=== PATIENT | female | born 1985 | race Two or more races ===

== ENCOUNTER 2017-09-26 17:15 | Emergency (ER) | payer OTHER ==
[2017-09-26 17:55] VITALS: BMI 28.3
--- NOTE | 2017-09-26 17:59 | PDOC ---
History of Present Illness - General Chief Complaint: Pain Stated Complaint: FLU SYMPTOMS Time Seen by Provider: 09/26/17 17:39 *DC/Admit/Observation/Transfer Diagnosis at time of Disposition: Vaginal bleeding in - Referrals Referrals: Mert Torres [Primary Care Provider] - - Patient Instructions - Post Discharge Activity
--- NOTE | 2017-09-26 18:00 | PDOC ---
History of Present Illness - General Chief Complaint: Pain Stated Complaint: FLU SYMPTOMS Time Seen by Provider: 09/26/17 17:39 - History of Present Illness Initial Comments: 09/26/17 17:54 31 yo F 2 aborta, at 26 wga, confirmed by U/S with LMP (03/23/17) BIBA for multiple complaints including decreased movement. Patient reports decreased movement within last 24 hours following influenza illness x 1 week. Has been experiencing NICHOLS, congestion, chest pressure, R sided rib pain, non productive cough, subjective fevers/chills. + leg swelling. Recent diagnosis of Influenza-B 2 days ago on Tamiflu. Denies N/V, hemoptyisis, abdominal pain, diarrhea, constipation, urinary complaints, leg swelling, vaginal bleeding, vaginal discharge. 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 Denies h/o DVT/PE, recent immobilization, trauma or surgery within past 6 weeks, hormonal therapy, or h/o malignancy. Past History - Past Medical History Allergies/Adverse Reactions: Allergies Allergy/AdvReac Type Severity Reaction Status Date / Time No Known Allergies Allergy Unverified 09/26/17 17:51 Home Medications: Ambulatory Orders Oseltamivir Phosphate [Tamiflu -] 75 mg PO BID 09/26/17 COPD: No - Suicide/Smoking/Psychosocial Hx Smoking History: Never smoked Information on smoking cessation initiated: No Hx Alcohol Use: No Drug/Substance Use Hx: No Review of Systems - Review of Systems Comments:: 09/26/17 17:59 GENERAL/CONSTITUTIONAL: + Weakness. No fever or chills. HEAD, EYES, EARS, NOSE AND THROAT: No change in vision. No ear pain or discharge. No sore throat.- CARDIOVASCULAR: + chest pain and shortness of breath RESPIRATORY:+cough. No wheezing, or hemoptysis. GASTROINTESTINAL: No nausea, vomiting, diarrhea or constipation. GENITOURINARY: No dysuria, frequency, or change in urination. MUSCULOSKELETAL: No joint or muscle swelling or pain. No neck or back pain. SKIN: No rash NEUROLOGIC: + headache. No vertigo, loss of consciousness, or change in strength /sensation. ENDOCRINE: No increased thirst. No abnormal weight change HEMATOLOGIC/LYMPHATIC: No anemia, easy bleeding, or history of blood clots. ALLERGIC/IMMUNOLOGIC: No hives or skin allergy. *Physical Exam - Vital Signs Last Vital Signs Temp Pulse Resp BP Pulse Ox 98.1 F 104 H 18 119/72 98 09/26/17 17:42 09/26/17 17:42 09/26/17 17:42 09/26/17 17:42 09/26/17 17:42 - Physical Exam Comments: 09/26/17 18:00 GENERAL: Awake, alert, and fully oriented, in no acute distress HEAD: No signs of trauma, normocephalic, atraumatic EYES: PERRLA, EOMI, sclera anicteric, conjunctiva clear ENT:Hearing grossly normal, nares patent, oropharynx clear without exudates. Moist mucosa NECK: Normal ROM, supple, no lymphadenopathy, JVD, or masses LUNGS: No distress, speaks full sentences, clear to auscultation bilaterally HEART: Regular rate and rhythm, normal S1 and S2, no murmurs, rubs or gallops, peripheral pulses normal and equal bilaterally. ABDOMEN: Uterine fundus palpated above umbilicus. Soft, nontender, normoactive bowel sounds. No guarding, no rebound. No masses. Neg surpapubic ttp. Neg CVA ttp. EXTREMITIES : BL LE non pitting edema. Normal inspection, Normal range of motion. No clubbing or cyanosis. SKIN: Warm, Dry, normal turgor, no rashes or lesions noted ED Treatment Course - LABORATORY CBC & Chemistry Diagram: 09/26/17 18:05 09/26/17 18:05 Medical Decision Making - Medical Decision Making 09/26/17 17:59 31 yo F 2 aborta, at 26 wga, confirmed by U/S with LMP (03/23/17) BIBA for multiple complaints including decreased movement within last 24 hours following influenza illness x 1 week, with recent diagnosis of Influenza-B 2 days ago on Tamiflu.. Has been experiencing NICHOLS, congestion, chest pressure, R sided rib pain, non productive cough, subjective fevers/chills. Denies N/V, hemoptyisis, abdominal pain, diarrhea, constipation, urinary complaints, vaginal bleeding, vaginal discharge. 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 Physical exam noteable for BL LE cirumferntial swelling L>R. Mildly tachycardic HR~104. Although, low risk weils criteria, will consider PE, in setting of tachycardia, chest discomfort, leg swelling and left calf cramping. R/o LE DVT. Most likely need monitoring on OB unit. No evidence of vaginal bleeding or lower abdominal pain to suggest placenta previa, threatened . ED Course: CBC,CMP, T&S, BHCG NS Doppler BL LE EKG, UA 09/26/17 19:12 K+3.1 LFTs, and PLTs non elevated. 09/26/17 19:18 Bedside FHR 138 09/26/17 19:19 40 meQ Pottasium PO 09/26/17 21:58 DVT BL LE: No evidence of BL LE DVT. Pt. stable at bedside with imrpoved symptoms. Will go to L&D unit following discharge. *DC/Admit/Observation/Transfer Diagnosis at time of Disposition: Decreased movement during in second trimester, antepartum Qualifiers: Fetus number: fetus 3 of multiple gestation Qualified Code(s): O36.8123 - Decreased movements, second trimester, fetus 3 - Discharge Dispostion Disposition: HOME Condition at time of disposition: Stable Admit: No - Referrals Referrals: Mert Torres [Primary Care Provider] - Shahriar North MD [Staff Physician] - - Patient Instructions Printed Discharge Instructions: DI for H1N1 Influenza -- Adult Additional Instructions: Please return to the emergency department with any new or worsening symptoms or concerns. Please follow up with your SERVICE ENGINEER physician within 72 hours. - Post Discharge Activity - Attestations Physician Attestion: 09/26/17 22:00 I attest to the information provided in this note.
[2017-09-26] MEDS ORDERED: SODIUM CHLORIDE 1,000 ML IV STA (18:10)
[2017-09-26 18:13] LABS: BASO % 0.1 % (0-2.0); EOS % 0.4 % (0-4.5); HEMATOCRIT 26.8 % (32.4-45.2); LYMPH % 15.9 % (8-40); MCH 26.9 pg (25.7-33.7); MCHC 33.4 g/dl (32.0-36.0); MEAN CELL VOLUME 80.6 fl (80-96); MEAN PLT VOLUME 7.4 fl (7.5-11.1); MONO % 5.6 % (3.8-10.2); PLATELET COUNT 296 K/MM3 (134-434); RBC 3.33 M/mm3 (3.60-5.2); RDW 14.9 % (11.6-15.6); WHITE BLOOD COUNT 7.3 K/mm3 (4.0-10.0)
[2017-09-26] MEDS ORDERED: SODIUM CHLORIDE 0.9% 1000 ML INFUS.BAG IV ONE (18:39)
[2017-09-26] MEDS ORDERED: METOCLOPRAMIDE HCL INJECTION 10 MG/2 ML VIAL IVPUSH ONE (18:39)
--- NOTE | 2017-09-26 18:41 | PDOC ---
Attending Attestation - HPI HPI: 09/26/17 18:52 The patient is a 31 year old female, , 2 abortions, at 26 wga, who presents to the ED with complaints of decreased movement for one day and cold like symptoms over a week. The patient reports decreased movement since yesterday. She states she was recently diagnosed with influenza 2 days ago and prescribed Tamiflu. She reports nasal congestion, chest discomfort, R sided rib pain, cough, and subjective fever/chills for one week. She also reports bilateral leg swelling and cramping last night. Denies nausea, vomiting, or diarrhea. Denies chest pain or shortness of breath. Denies dysuria or change in urinary output. Denies any other symptoms. - Physicial Exam PE: 09/26/17 18:52 Constitutional: Awake, alert, oriented. No acute distress. Head: Normocephalic. Atraumatic Eyes: PERRL. EOMI. Conjunctivae are not pale. ENT: Mucous membranes are moist and intact. Posterior pharynx without exudates or erythema. Uvula midline. Neck: Supple. Full ROM. No lymphadenopathy. Cardiovascular:+ tachycardic, Regular rhythm. S1, S2 regular. Distal pulses are 2+ and symmetric. Pulmonary/Chest: No evidence of respiratory distress. Clear to auscultation bilaterally No wheezing, rales or rhonchi. Abdominal: + gravid, bedside US showed IUP with heart rate of 138. There is no tenderness. No rebound, guarding or rigidity. No organomegaly. No palpable masses. Good bowel sounds. Back: No CVA tenderness. Extremities: + slight swelling in bilateral lower extremities, non pitting. Musculoskeletal: No edema. No cyanosis. No clubbing. Full range of motion in all extremities. Nocalf tenderness. Radial/pedal pulses are intact and 2+ bilaterally Skin: Skin is warm and dry. No petechiae. No purpura. Neurological: Alert and oriented to person, place, and time. Cranial nerves II -XII are grossly intact. Normal speech. Strength is grossly symmetric. No sensory deficits. Psychiatric: Good eye contact. Normal interaction, affect and behavior. - Medical Decision Making 09/26/17 18:52 Documentation prepared by Marylu Villaseñor, acting as medical staff manager for Ashley Esposito DO <Marylu Villaseñor - Last Filed: 09/26/17 18:52> - Resident Resident Name: Nikko Machuca - ED Attending Attestation I have performed the following: I have examined & evaluated the patient, The case was reviewed & discussed with the resident, I agree w/resident's findings & plan, Exceptions are as noted - Medical Decision Making 09/26/17 18:41 I, Dr. Ashley Esposito, DO, attest that this document has been prepared under my direction and personally reviewed by me in its entirety. I further attest, that it accurately reflects all work, treatment, procedures and medical decision -making performed by me. 09/26/17 18:41 bedside FHR - 138 09/26/17 18:54 a/p: 31yo female with decreased PO intake and + influenza 2 days ago at [facility] -no vaginal bleeding -no loss of fluid -states decreased movement today -only drank water today -will check labs, give ivf hydration -will check ekg given cp when she coughs - lungs cta, but cough productive green sputum -treated for strep throat 10days ago -will check dopplers LE given leg cramping -will medically clear and send to L/D for monitoring 09/26/17 21:30 discussed with L&D will transfer patient to L&D once ultrasound negative for dvt pt states feeling better no sutton at this time cramping has gone away potassium was replaced in the ED 09/26/17 21:59 dopplers negative labs reviewed and pt feeling much better stable for d/c to home and transfer to L&D for further eval <Ashley Esposito - Last Filed: 09/26/17 22:00> Heart Score/ECG Review - ECG Intrepretation Comment:: 09/26/17 18:56 sinus at 98, nl axis, nl interval, t wave inversions III which are nonspecific, no acute st/t wave findings <Ashley Esposito - Last Filed: 09/26/17 22:00>
[2017-09-26 18:45] LABS: ALBUMIN 2.6 g/dl (3.4-5.0); ALK PHOS 71 U/L (45-117); ANION GAP 11 (8-16); BILIRUBIN,TOTAL 0.3 mg/dL (0.2-1.0); BLOOD UREA NITROGEN 5 mg/dL (7-18); CALCIUM 7.7 mg/dL (8.5-10.1); CHLORIDE 104 mmol/L (98-107); CO2 23 mmol/L (21-32); CREATININE 0.4 mg/dL (0.55-1.02); GLUCOSE,RANDOM 79 mg/dL (74-106); POTASSIUM 3.1 mmol/L (3.5-5.1); SGOT/AST 6 U/L (15-37); SGPT/ALT 8 U/L (12-78); SODIUM 138 mmol/L (136-145); TOT PROT 6.7 g/dl (6.4-8.2)
[2017-09-26] MEDS ORDERED: METOCLOPRAMIDE HCL INJECTION 10 MG/2 ML VIAL ONE (18:46)
[2017-09-26] MEDS ORDERED: POTASSIUM CHLORIDE TABS 20 MEQ TABLET.ER (FP) PO ONE (19:19)
[2017-09-26] MEDS ORDERED: POTASSIUM CHLORIDE TABS 10 MEQ TABLET.ER (FP) ONE (19:27)
[2017-09-26] MEDS ORDERED: FLUTICASONE PROP 0.05% 16 GM NASAL SPRAY NS ONE (20:37)
[2017-09-26 20:45] LABS: URINE APPEARANCE CLEAR; URINE BILIRUBIN NEGATIVE (NEGATIVE); URINE BLOOD NEGATIVE (NEGATIVE); URINE COLOR STRAW; URINE GLUCOSE (UA) NEGATIVE (NEGATIVE); URINE KETONE 2+ (NEGATIVE); URINE LEUK ESTERASE NEGATIVE (NEGATIVE); URINE NITRITE NEGATIVE (NEGATIVE); URINE PROTEIN NEGATIVE (NEGATIVE); URINE UROBILINOGEN NEGATIVE mg/dL (0.2-1.0)
[2017-09-26] MEDS ORDERED: ACETAMINOPHEN 1000 MG/100 ML VIAL (NON FORMULARY) IVPB ONE (20:54)
[2017-09-26] MEDS ORDERED: ACETAMINOPHEN INJECTION 100 ML IVPB ONE (21:00)
[2017-09-26 23:36] VITALS: BP 113/71; PULSE 101; TEMP 98.5
--- NOTE | 2017-09-27 20:04 | EKG ---
Test Reason : Blood Pressure : / mmHG Vent. Rate : 098 BPM Atrial Rate : 098 BPM P-R Int : 124 ms QRS Dur : 084 ms QT Int : 338 ms P-R-T Axes : 039 027 007 degrees QTc Int : 431 ms NORMAL SINUS RHYTHM RSR' OR QR PATTERN IN V1 SUGGESTS RIGHT VENTRICULAR CONDUCTION DELAY NONSPECIFIC ST AND T WAVE ABNORMALITY NO PREVIOUS ECGS AVAILABLE Confirmed by ADRIEL GOMEZ MD ([id number]) on 09/27/2017 8:04:02 PM Referred By: Confirmed By:ADRIEL GOMEZ MD
== END 2017-09-26 23:35 | disposition home or self-care (01) ==
LOC: JER 17:15
DX: O26.892 Other specified pregnancy related conditions, second trimester (principal); O36.8120 Decreased fetal movements, second trimester, not applicable or unspecified; Z3A.26 26 weeks gestation of pregnancy; R60.0 Localized edema; M62.831 Muscle spasm of calf; O98.512 Other viral diseases complicating pregnancy, second trimester; J11.1 Influenza due to unidentified influenza virus with other respiratory manifestations
CPT/HCPCS: 36415; 80053; 81003; 85025; 86850; 86900; 86901; 93005; 93010; 93970-TC; 99284-25; J0131; J7030

== ENCOUNTER 2018-06-09 11:30 | Observation (INO) | payer OTHER ==
--- NOTE | 2018-06-09 12:15 | PDOC ---
History of Present Illness - General Chief Complaint: Pain Stated Complaint: BACK PAIN Time Seen by Provider: 06/09/18 12:14 History Source: Patient Exam Limitations: No Limitations - History of Present Illness Initial Comments: 06/09/18 12:27 32 year old female with PMH thyroid disorder ("the one that makes your hair fall out") presented to ED for nausea, vomiting, diarrhea since this morning. She stated she has had 5 episodes of watery diarrhea, denied blood. She stated she had 6 episodes of vomiting, stated it was green, denied hematemesis. She admitted to nonproductive cough, chills, sweats, body aches, headache, bilateral finger tingling, back pain "all over". She denied abdominal pain, sore throat, runny nose, association with food, recent travel. She stated her two children also have a cough. She stated her LMP was two weeks ago. Past History - Past Medical History Allergies/Adverse Reactions: Allergies Allergy/AdvReac Type Severity Reaction Status Date / Time No Known Allergies Allergy Unverified 09/26/17 17:51 COPD: No CHF: No - Suicide/Smoking/Psychosocial Hx Smoking History: Never smoked Have you smoked in the past 12 months: No Information on smoking cessation initiated: No Hx Alcohol Use: No Drug/Substance Use Hx: No Substance Use Type: None Review of Systems - Review of Systems Able to Perform ROS?: Yes Comments:: 06/09/18 12:31 General: admitted to chills, night sweats, generalized weakness, body aches. HEENT: denied sore throat, rhinorrhea, ear pain. Heart: denied chest pain, palpitations, syncope, lower extremity swelling, diaphoresis. Respiratory: admitted to cough. denied shortness of breath, sputum production, hemoptysis. Abdomen: admitted to nausea, vomiting, diarrhea. denied abdominal pain, constipation, blood in stool. : denied dysuria, increased urinary frequency, hematuria, urinary incontinence , flank pain. Back: admitted to back pain. Musculoskeletal: denied joint pain, joint swelling. Neurological: admitted to hedaache, finger tingling. denied dizziness, weakness. Skin: denied rash, laceration, abrasion. *Physical Exam - Vital Signs Last Vital Signs Temp Pulse Resp BP Pulse Ox 97 F L 108 H 16 118/62 98 06/09/18 11:40 06/09/18 11:40 06/09/18 11:40 06/09/18 11:40 06/09/18 12:04 - Physical Exam Comments: 06/09/18 12:33 Constitutional: Well-nourished, Well-developed, appearing stated age. HEENT: head is normocephalic, atraumatic. EOMI. PERRLA. Neck: supple. Full ROM. Heart: regular rhythm. no murmurs, rubs or gallops. Lungs: clear to auscultation bilaterally. no crackles, rhonchi or wheezing. no stridor. Abdomen: soft, nontender. normal bowel sounds. no rebound, guarding, masses. Rectal: no external hemorrhoids. good rectal tone. no gross blood. Extremities: Peripheral pulses intact. No lower extremity edema. Neurological: CN2-12 intact. 5/5 strength all extremities. Full sensation all extremities and bilateral face. Psych: awake, alert, oriented x3. Follows commands. Answers questions appropriately. ED Treatment Course - LABORATORY CBC & Chemistry Diagram: 06/10/18 07:30 06/10/18 07:30 Medical Decision Making - Medical Decision Making 06/09/18 12:35 32 year old female with PMH hypothyroidism presented to ED for nausea, vomiting , diarrhea, body aches, cough, finger tingling since 0500 today. Initial Vital Signs Temp Pulse Resp BP Pulse Ox 97 F L 108 H 16 118/62 100 06/09/18 11:40 06/09/18 11:40 06/09/18 11:40 06/09/18 11:40 06/09/18 11:40 Afebrile. Tachycardic. No tachypnea. Mild hypotension. No hypoxia on room air. IV fluids ordered for dehydration. Zofran ordered for nausea. Tylenol ordered for pain. Pending CBC, CMP, UA/UC, Lipase, Urine test. 06/09/18 13:45 CBC WBC 8.4 K/mm3 (4.0-10.0) 06/09/18 12:35 RBC 4.00 M/mm3 (3.60-5.2) 06/09/18 12:35 Hgb 9.5 GM/dL (10.7-15.3) L 06/09/18 12:35 Hct 30.7 % (32.4-45.2) L 06/09/18 12:35 MCV 76.8 fl (80-96) L 06/09/18 12:35 MCH 23.9 pg (25.7-33.7) L D 06/09/18 12:35 MCHC 31.1 g/dl (32.0-36.0) L 06/09/18 12:35 RDW 17.1 % (11.6-15.6) H 06/09/18 12:35 Plt Count 288 K/MM3 (134-434) 06/09/18 12:35 MPV 8.9 fl (7.5-11.1) D 06/09/18 12:35 Absolute Neuts (auto) 7.1 K/mm3 (1.5-8.0) 06/09/18 12:35 Neutrophils % 84.7 % (42.8-82.8) H 06/09/18 12:35 Lymphocytes % 8.0 % (8-40) D 06/09/18 12:35 Monocytes % 6.5 % (3.8-10.2) 06/09/18 12:35 Eosinophils % 0.4 % (0-4.5) 06/09/18 12:35 Basophils % 0.4 % (0-2.0) D 06/09/18 12:35 Nucleated RBC % 0 % (0-0) 06/09/18 12:35 No leukocytosis. Microcytic anemia. - Improved from prior lab work 09/26/17: Hgb 9.0, Hct 26.8 CMP Sodium 138 mmol/L (136-145) 06/09/18 12:35 Potassium 3.7 mmol/L (3.5-5.1) 06/09/18 12:35 Chloride 105 mmol/L (98-107) 06/09/18 12:35 Carbon Dioxide 27 mmol/L (21-32) 06/09/18 12:35 Anion Gap 6 MMOL/L (8-16) L 06/09/18 12:35 BUN 11 mg/dL (7-18) 06/09/18 12:35 Creatinine 0.6 mg/dL (0.55-1.3) 06/09/18 12:35 Creat Clearance w eGFR > 60 (>60) 06/09/18 12:35 Random Glucose 89 mg/dL (74-106) 06/09/18 12:35 Calcium 8.3 mg/dL (8.5-10.1) L 06/09/18 12:35 Phosphorus 2.3 mg/dL (2.5-4.9) L 06/09/18 12:27 Magnesium 1.9 mg/dL (1.8-2.4) 06/09/18 12:27 Total Bilirubin 0.3 mg/dL (0.2-1) 06/09/18 12:35 AST 10 U/L (15-37) L 06/09/18 12:35 ALT 16 U/L (13-61) 06/09/18 12:35 Alkaline Phosphatase 73 U/L (45-117) 06/09/18 12:35 Total Protein 7.1 g/dl (6.4-8.2) 06/09/18 12:35 Albumin 3.4 g/dl (3.4-5.0) 06/09/18 12:35 Lipase 93 U/L (73-393) 06/09/18 12:35 TSH 0.15 uIU/ml (0.358-3.74) L 06/09/18 12:35 No electrolyte abnormalities No LORI No hypoglycemia Low calcium Low phosphorus Borderline magnesium Low TSH. - Free T4 added on to blood work Urine Test Results Urine Color Ltyellow 06/09/18 12:35 Urine Appearance Clear 06/09/18 12:35 Urine pH 7.0 (5.0-8.0) 06/09/18 12:35 Ur Specific [place] 1.015 (1.010-1.035) 06/09/18 12:35 Urine Protein Negative (NEGATIVE) 06/09/18 12:35 Urine Glucose (UA) Negative (NEGATIVE) 06/09/18 12:35 Urine Ketones Negative (NEGATIVE) 06/09/18 12:35 Urine Blood 1+ (NEGATIVE) H 06/09/18 12:35 Urine Nitrite Negative (NEGATIVE) 06/09/18 12:35 Urine Bilirubin Negative (<2.0 mg/dL) 06/09/18 12:35 Ur Leukocyte Esterase Negative (NEGATIVE) 06/09/18 12:35 Ur Epithelial Cells Rare /HPF (FEW) 06/09/18 12:35 Urine Mucus Rare 06/09/18 12:35 Negative for UTI. Urine testing negative. 11/21/18 13:59 Pt reassessed, states pain is not improved. Pt has not received all of IV tylenol yet. Abdomen: soft, nontender, flat. Pt refused flu testing, stated "I do not like that thing, and I will not take the medicine anyways." 06/09/18 14:49 Free T4 normal. 06/09/18 14:59 Pt reported continued pain "all over". Toradol ordered. Pt tolerated PO juice challenge. Pt now has burger donna in her lap brought in by family. 06/09/18 15:37 Pt ate burger donna and now feels nauseous. 06/09/18 16:05 Vital Signs Temperature 100.2 F H 06/09/18 15:58 Pulse Rate 102 H 06/09/18 15:58 Respiratory Rate 18 06/09/18 15:58 Blood Pressure 106/61 06/09/18 15:58 O2 Sat by Pulse Oximetry (%) 96 06/09/18 15:58 Pt now febrile. Still tachycardic. Hypotensive. No hypoxia on room air. Fluids running slow, pt received only 500cc of 1L normal saline. Toradol given 15 minutes ago. Will reassess. 06/09/18 18:02 Vital Signs Temperature 98.5 F 06/09/18 17:44 Pulse Rate 99 H 06/09/18 17:44 Respiratory Rate 17 06/09/18 17:44 Blood Pressure 111/59 L 06/09/18 17:44 O2 Sat by Pulse Oximetry (%) 99 06/09/18 17:44 Tachycardia improving with fluid hydration. Afebrile. 06/09/18 18:26 Pt reassessed, stated her pain "all over" is improving, but now she has abdominal pain. Abdominal exam: soft. nondistended. tenderness to palpation to LLQ and epigastrium. CT abdomen/pelvis with IV contrast ordered. 06/09/18 18:57 Pelvic exam: normal external genitalia. normal white discharge. no cmt. no adnexal tenderness bilaterally. Pt signed out to Dr. Monroy. *DC/Admit/Observation/Transfer Diagnosis at time of Disposition: Nausea vomiting and diarrhea Abdominal pain Qualifiers: Abdominal location: left lower quadrant Qualified Code(s): R10.32 - Left lower quadrant pain - Discharge Dispostion Disposition: HOME Condition at time of disposition: Improved Decision to Admit order: Yes - Referrals - Patient Instructions - Post Discharge Activity
[2018-06-09] MEDS ORDERED: ACETAMINOPHEN 1000 MG/100 ML VIAL (NON FORMULARY) IVPB ONE ×2 (12:26→21:38)
[2018-06-09] MEDS ORDERED: SODIUM CHLORIDE 1,000 ML IV STA ×2 (12:26→17:18)
[2018-06-09] MEDS ORDERED: ONDANSETRON 4 MG/2 ML VIAL IVPUSH ONE (12:26)
[2018-06-09] MEDS ORDERED: ACETAMINOPHEN INJECTION 100 ML IVPB ONE (12:51)
[2018-06-09] MEDS ORDERED: ONDANSETRON 4 MG/2 ML VIAL ONE (12:51)
[2018-06-09 12:59] LABS: BASO % 0.4 % (0-2.0); EOS % 0.4 % (0-4.5); HEMATOCRIT 30.7 % (32.4-45.2); HEMOGLOBIN 9.5 GM/dL (10.7-15.3); MCH 23.9 pg (25.7-33.7); MCHC 31.1 g/dl (32.0-36.0); MEAN CELL VOLUME 76.8 fl (80-96); MEAN PLT VOLUME 8.9 fl (7.5-11.1); MONO % 6.5 % (3.8-10.2); NEUT % 84.7 % (42.8-82.8); PLATELET COUNT 288 K/MM3 (134-434); RDW 17.1 % (11.6-15.6); WHITE BLOOD COUNT 8.4 K/mm3 (4.0-10.0)
[2018-06-09 13:09] LABS: INR 1.13 (0.83-1.09); PROTHROMBIN TIME (PATIENT) 13.4 SEC (9.7-13.0)
[2018-06-09 13:14] LABS: URINE APPEARANCE CLEAR; URINE BILIRUBIN NEGATIVE (<2.0 mg/dL); URINE COLOR LTYELLOW; URINE GLUCOSE (UA) NEGATIVE (NEGATIVE); URINE KETONE NEGATIVE (NEGATIVE); URINE LEUK ESTERASE NEGATIVE (NEGATIVE); URINE NITRITE NEGATIVE (NEGATIVE); URINE PROTEIN NEGATIVE (NEGATIVE); URINE UROBILINOGEN NEGATIVE mg/dL (0.2-1.0)
[2018-06-09 13:15] LABS: ACTIVATED PTT 30.7 SECONDS (25.2-36.5); HCG,QUALITATIVE URINE Negative
[2018-06-09 13:16] LABS: MAGNESIUM 1.9 mg/dL (1.8-2.4); PHOSPHOROUS 2.3 mg/dL (2.5-4.9)
[2018-06-09 13:19] LABS: EPI CELLS RARE /HPF (FEW); URINE MUCUS RARE
[2018-06-09 13:27] LABS: ALBUMIN 3.4 g/dl (3.4-5.0); ALK PHOS 73 U/L (45-117); ANION GAP 6 MMOL/L (8-16); BILIRUBIN,TOTAL 0.3 mg/dL (0.2-1); BLOOD UREA NITROGEN 11 mg/dL (7-18); CALCIUM 8.3 mg/dL (8.5-10.1); CHLORIDE 105 mmol/L (98-107); CO2 27 mmol/L (21-32); CREATININE 0.6 mg/dL (0.55-1.3); GLUCOSE,RANDOM 89 mg/dL (74-106); LIPASE 93 U/L (73-393); POTASSIUM 3.7 mmol/L (3.5-5.1); SGOT/AST 10 U/L (15-37); SGPT/ALT 16 U/L (13-61); SODIUM 138 mmol/L (136-145); TOT PROT 7.1 g/dl (6.4-8.2)
[2018-06-09] MEDS ORDERED: KETOROLAC TROMETHAMINE 30 MG/1 ML VIAL IVPUSH ONE ×2 (14:59→23:45)
--- NOTE | 2018-06-09 15:11 | PDOC ---
Attending Attestation - Resident Resident Name: Ariadne Isaac - ED Attending Attestation I have performed the following: I have examined & evaluated the patient, The case was reviewed & discussed with the resident, I agree w/resident's findings & plan, Exceptions are as noted - HPI HPI: 06/09/18 15:04 This is a 32 year old female with a significant past medical history of hypothyroidism, iron deficiency anemia 2/2 heavy periods presents to the emergency department today complaining of nausea, vomiting, and diarrhea for one day. Patient notes she has had 5 episodes of watery non bloody diarrhea since earlier this morning. Patient also states she has had 6 episodes of vomit since earlier this morning, but denies blood in vomit. States vomit has been the color of what she ate. She reports an associated non-productive cough, with chills, diffuse body aches, and gradual onset global headache. Patient notes symptoms are not exacerbated with meals. LMP was two weeks ago. Patient notes her children have had a cough, but they have not vomiting or had diarrhea. Denies fevers, cp, sob, focal weakness, numbness, stiff neck, rashes Denies dysuria, frequency, urgency Denies vaginal DC, abdominal pain. Denies sore throat or runny nose. PCP: none reported - Physicial Exam PE: 06/09/18 15:11 GENERAL: Awake, alert, and fully oriented, in no acute distress. Drinking orange juice and eating [employer] while watching TV. EYES: EOMI, sclera anicteric, conjunctiva clear ENT: Oropharynx clear without exudates. Moist mucosa NECK: Normal ROM, supple LUNGS: Breath sounds equal, clear to auscultation bilaterally. No wheezes, and no crackles HEART: Regular rate and rhythm, normal S1 and S2, no murmurs, rubs or gallops ABDOMEN: Obese. Soft, nontender, normoactive bowel sounds. No guarding, no rebound. No masses EXTREMITIES: Normal range of motion, no edema. No cords, erythema, or tenderness BACK: No midline spinal tenderness in cervical/thoracic/lumbar region NEUROLOGICAL: Normal speech, cranial nerves intact, 5/5 strength in all 4 extremities, normal sensation to light touch in all 4 extremities, normal gait SKIN: Warm, Dry, normal turgor, no rashes or lesions noted. - Medical Decision Making 06/09/18 15:13 32yo F hx anemia, hypothyroidism presents to the ED with N/V/D. Vitals initially with tachycardia to low 100s, on my exam, HR 80. Exam unremarkable with no abd ttp. Likely viral gastro given sick contacts, N/V/D. Pt very well appearing with no abd ttp, non toxic appearing. Eating [employer] at the bedside. TSH was low, but free T4 wnl. Pt also with anemia, hgb 9.5 with low MCV consistent with known hx iron deficiency anemia. As pt is tolerating PO with benign abd exam, will DC to f/u with PMD. Return precautions given. 06/09/18 18:13 On vitals recheck, pt persistently tachy to 108 and febrile Given toradol and IVF WIll recheck vitals 06/09/18 18:29 Vitals improved. Pt now c/o LLQ abd pain that developed here in the ED Will put pt on ED obs Pelvic exam pending CTAP pending 06/09/18 19:[address] Dempsey as pt to exceed 8hr LOS. Pt admitted to obs under Dr. John CTAP pending Case discussed in detail with admitting physician including history, physical exam and ancillary studies. Admitting physician has assumed care for the patient, will follow all pending diagnostics and will complete the evaluation and treatment.
[2018-06-09] MEDS ORDERED: KETOROLAC TROMETHAMINE 30 MG/1 ML VIAL ONE (15:26)
--- NOTE | 2018-06-09 20:32 | PDOC ---
*Physical Exam - Vital Signs Last Vital Signs Temp Pulse Resp BP Pulse Ox 98.5 F 99 H 17 111/59 L 99 06/09/18 17:44 06/09/18 17:44 06/09/18 17:44 06/09/18 17:44 06/09/18 17:44 ED Treatment Course - LABORATORY CBC & Chemistry Diagram: 06/09/18 12:35 06/09/18 12:35 - ADDITIONAL ORDERS Additional order review: Laboratory Results 06/09/18 06/09/18 06/09/18 12:35 12:35 12:35 PT with INR 13.40 H INR 1.13 H PTT (Actin FS) 30.7 Sodium 138 Potassium 3.7 Chloride 105 Carbon Dioxide 27 Anion Gap 6 L BUN 11 Creatinine 0.6 Creat Clearance w eGFR > 60 Random Glucose 89 Calcium 8.3 L Phosphorus Magnesium Total Bilirubin 0.3 AST 10 L ALT 16 Alkaline Phosphatase 73 Total Protein 7.1 Albumin 3.4 Lipase 93 TSH 0.15 L Free T4 Urine Color Ltyellow Urine Appearance Clear Urine pH 7.0 Ur Specific [place] 1.015 Urine Protein Negative Urine Glucose (UA) Negative Urine Ketones Negative Urine Blood 1+ H Urine Nitrite Negative Urine Bilirubin Negative Urine Urobilinogen Negative Ur Leukocyte Esterase Negative Urine WBC (Auto) 1 Urine RBC (Auto) 3 Ur Epithelial Cells Rare Urine Mucus Rare Urine HCG, Qual Negative 06/09/18 12:27 PT with INR INR PTT (Actin FS) Sodium Potassium Chloride Carbon Dioxide Anion Gap BUN Creatinine Creat Clearance w eGFR Random Glucose Calcium Phosphorus 2.3 L Magnesium 1.9 Total Bilirubin AST ALT Alkaline Phosphatase Total Protein Albumin Lipase TSH Free T4 1.02 Urine Color Urine Appearance Urine pH Ur Specific [place] Urine Protein Urine Glucose (UA) Urine Ketones Urine Blood Urine Nitrite Urine Bilirubin Urine Urobilinogen Ur Leukocyte Esterase Urine WBC (Auto) Urine RBC (Auto) Ur Epithelial Cells Urine Mucus Urine HCG, Qual 06/09/18 12:35 RBC 4.00 MCV 76.8 L MCHC 31.1 L RDW 17.1 H MPV 8.9 D Neutrophils % 84.7 H Lymphocytes % 8.0 D Monocytes % 6.5 Eosinophils % 0.4 Basophils % 0.4 D - Medications Given in the ED: ED Medications Discontinued Medications Generic Name Dose Route Start Last Admin Trade Name Freq PRN Reason Stop Dose Admin Acetaminophen 1,000 mg 06/09/18 12:26 06/09/18 12:55 Ofirmev Injection - IVPB 06/09/18 12:27 1,000 mg ONCE ONE Administration Sodium Chloride 1,000 mls @ 1,000 mls/hr 06/09/18 12:26 06/09/18 12:50 Normal Saline - IV 06/09/18 13:25 1,000 mls/hr ASDIR STA Administration Sodium Chloride 1,000 mls @ 1,000 mls/hr 06/09/18 17:18 06/09/18 17:35 Normal Saline - IV 06/09/18 18:17 1,000 mls/hr ASDIR STA Administration Ketorolac Tromethamine 30 mg 06/09/18 14:59 06/09/18 15:32 Toradol Injection - IVPUSH 06/09/18 15:00 30 mg ONCE ONE Administration Ondansetron HCl 4 mg 06/09/18 12:26 06/09/18 13:09 Zofran Injection IVPUSH 06/09/18 12:27 4 mg ONCE ONE Administration Medical Decision Making - Medical Decision Making 32 year old female signed out to me in stable condition with LLQ abdominal pain. She was previously ED Obs'd but converted to a full ovbs pending a CT abdomen/ pelvis with IV contrast. I spoke to her regarding the risks/ benefits of the CT because she had some reservations. She agreed to it in the end. 06/09/18 20:28 *DC/Admit/Observation/Transfer Diagnosis at time of Disposition: Nausea vomiting and diarrhea Abdominal pain Qualifiers: Abdominal location: left lower quadrant Qualified Code(s): R10.32 - Left lower quadrant pain - Discharge Dispostion Disposition: HOME Condition at time of disposition: Stable - Prescriptions - Referrals - Patient Instructions - Post Discharge Activity
--- NOTE | 2018-06-09 20:59 | HP ---
CHIEF COMPLAINT: nausea/vomiting/diarrhea PCP: HISTORY OF PRESENT ILLNESS: Patient is a 32 y/o F w/ PMHx thyroid disease (unknown what kind) diagnosed during recent ~6 mos ago, not on treatment, presents w/ 1 day history of n/v/d. ~6 episodes each of vomiting and diarrhea, all watery, non-bloody. Additionally c/o non-productive cough, chills sweats, body aches, headache, finger tingling b/l, back pain. Two children at home sick with cough. Did not initially c/o abd pain but developed focal LUQ/epigastric pain during ED stay. Pending CT abd w/ contrast. Received saline boluses, IV tylenol, ketorolac, zofran in ED. Was given [place] Eliot by visiting family which exacerbated symptoms. ER course was notable for: (1) nl WBC (2) low grade temp 100.2 resolved w/ tylenol (3) TSH 0.15, FT4 1.02 Recent Travel: none PAST MEDICAL HISTORY: as per HPI PAST SURGICAL HISTORY: as per HPI Social History: Smoking: Alcohol: Drugs: Family History: Allergies No Known Allergies Allergy (Unverified 09/26/17 17:51) HOME MEDICATIONS: Home Medications Medication Instructions Recorded Ondansetron [Zofran Odt -] 4 mg SL TID PRN #6 od.tablet 06/09/18 REVIEW OF SYSTEMS as per HPI PHYSICAL EXAMINATION Vital Signs - 24 hr 06/09/18 06/09/18 06/09/18 11:40 12:04 15:58 Temperature 97 F L 100.2 F H Pulse Rate 108 H Pulse Rate [ 102 H Right Radial] Respiratory 16 18 Rate Blood Pressure 118/62 Blood Pressure 106/61 [Right Arm] O2 Sat by Pulse 100 98 96 Oximetry (%) 06/09/18 06/09/18 16:52 17:44 Temperature 98.8 F 98.5 F Pulse Rate Pulse Rate [ 105 H 99 H Right Radial] Respiratory 18 17 Rate Blood Pressure Blood Pressure 108/54 L 111/59 L [Right Arm] O2 Sat by Pulse 97 99 Oximetry (%) GENERAL: Awake, alert, and fully oriented, in no acute distress. HEAD: Normal with no signs of trauma. EYES: Pupils equal, round and reactive to light, extraocular movements intact, sclera anicteric, conjunctiva clear. No lid lag. EARS, NOSE, THROAT: Ears normal, nares patent, oropharynx clear without exudates. Moist mucous membranes. NECK: Normal range of motion, supple without lymphadenopathy, JVD, or masses. LUNGS: Breath sounds equal, clear to auscultation bilaterally. No wheezes, and no crackles. No accessory muscle use. HEART: Regular rate and rhythm, normal S1 and S2 without murmur, rub or gallop. ABDOMEN: Soft, nontender, not distended, normoactive bowel sounds, no guarding, no rebound, no masses. No hepatomegaly or splenomegaly. UPPER EXTREMITIES: 2+ pulses, warm, well-perfused. No cyanosis. No clubbing. No peripheral edema. LOWER EXTREMITIES: 2+ pulses, warm, well-perfused. No calf tenderness. No peripheral edema. NEUROLOGICAL: Cranial nerves II-XII intact. Normal speech. Normal gait. PSYCHIATRIC: Cooperative. Good eye contact. Appropriate mood and affect. SKIN: Warm, dry, normal turgor, no rashes or lesions noted, normal capillary refill. Laboratory Results - last 24 hr 06/09/18 06/09/18 06/09/18 12:27 12:35 12:35 WBC 8.4 RBC 4.00 Hgb 9.5 L Hct 30.7 L MCV 76.8 L MCH 23.9 L D MCHC 31.1 L RDW 17.1 H Plt Count 288 MPV 8.9 D Absolute Neuts (auto) 7.1 Neutrophils % 84.7 H Lymphocytes % 8.0 D Monocytes % 6.5 Eosinophils % 0.4 Basophils % 0.4 D Nucleated RBC % 0 PT with INR 13.40 H INR 1.13 H PTT (Actin FS) 30.7 Sodium Potassium Chloride Carbon Dioxide Anion Gap BUN Creatinine Creat Clearance w eGFR Random Glucose Calcium Phosphorus 2.3 L Magnesium 1.9 Total Bilirubin AST ALT Alkaline Phosphatase Total Protein Albumin Lipase TSH Free T4 1.02 Urine Color Urine Appearance Urine pH Ur Specific [place] Urine Protein Urine Glucose (UA) Urine Ketones Urine Blood Urine Nitrite Urine Bilirubin Urine Urobilinogen Ur Leukocyte Esterase Urine WBC (Auto) Urine RBC (Auto) Ur Epithelial Cells Urine Mucus Urine HCG, Qual 06/09/18 06/09/18 12:35 12:35 WBC RBC Hgb Hct MCV MCH MCHC RDW Plt Count MPV Absolute Neuts (auto) Neutrophils % Lymphocytes % Monocytes % Eosinophils % Basophils % Nucleated RBC % PT with INR INR PTT (Actin FS) Sodium 138 Potassium 3.7 Chloride 105 Carbon Dioxide 27 Anion Gap 6 L BUN 11 Creatinine 0.6 Creat Clearance w eGFR > 60 Random Glucose 89 Calcium 8.3 L Phosphorus Magnesium Total Bilirubin 0.3 AST 10 L ALT 16 Alkaline Phosphatase 73 Total Protein 7.1 Albumin 3.4 Lipase 93 TSH 0.15 L Free T4 Urine Color Ltyellow Urine Appearance Clear Urine pH 7.0 Ur Specific [place] 1.015 Urine Protein Negative Urine Glucose (UA) Negative Urine Ketones Negative Urine Blood 1+ H Urine Nitrite Negative Urine Bilirubin Negative Urine Urobilinogen Negative Ur Leukocyte Esterase Negative Urine WBC (Auto) 1 Urine RBC (Auto) 3 Ur Epithelial Cells Rare Urine Mucus Rare Urine HCG, Qual Negative ASSESSMENT/PLAN: 32 y/o F w/ PMHx unspecified untreated thyroid dz p/w 1 day history of n/v/d, malaise, aches, chills, sweats, developed focal LUQ and epigastric pain in ED but no abd pain at time of evaluation. #n/v/d -likely viral gastroenteritis -LR @ 100 -clear liquid diet -pending contrast CT abd -avoid [place] Eliot -tylenol, Zofran as needed #FEN -LR @ 100 -monitor and replete as needed -clear liquid #PPx -DVT: SCDs -GI: not indicated #code -full #dispo -admit to obs Visit type - Emergency Visit Emergency Visit: Yes ED Registration Date: 06/09/18 Care time: The patient presented to the Emergency Department on the above date and was hospitalized for further evaluation of their emergent condition. - New Patient This patient is new to me today: Yes Date on this admission: 06/09/18 - Critical Care Critical Care patient: No
--- NOTE | 2018-06-09 21:07 | PN ---
Teaching Attending Note Name of Resident: Román Boston ATTENDING PHYSICIAN STATEMENT I saw and evaluated the patient. I reviewed the resident's note and discussed the case with the resident. I agree with the resident's findings and plan as documented. SUBJECTIVE: Patient is a 32 year old woman with PMH of hyperthyroidism who presents to the ER for nausea, vomiting, diarrhea since this morning. She stated she has had 5 episodes of watery diarrhea, denied blood. She stated she had 6 episodes of vomiting, stated it was green, denied hematemesis. She admitted to nonproductive cough, chills, sweats, body aches, headache, bilateral finger tingling, back pain "all over". She denied abdominal pain, sore throat, runny nose, association with food, recent travel. Her two children also have a cough. LMP was two weeks ago. OBJECTIVE: Alert Vital Signs Period Temp Pulse Resp BP Sys/Stephens Pulse Ox Last 24 Hr 97 F-100.2 F 99-108 16-18 106-118/54-62 96-100 HEENT: No Jaundice, eye redness or discharge, PERRLA, EOMI. Normocephalic, atraumatic. External ears are normal and hearing is grossly intact. No nasal discharge. Neck: Supple, nontender. No palpable adenopathy or thyromegaly. No JVD Chest: Good effort. Clear to auscultation and percussion. Heart: Regular. No S3, rub or murmur Abdomen: Not distended, soft, nontender and no HSM. No rebound or guarding. Normoactive bowel sounds. Ext: Peripheral pulses intact. No leg edema. Skin: Warm and dry. No petechiae, rash or ecchymosis. Neuro: Alert. Oriented x3. CN 2-12 grossly intact. Sensation grossly intact in all four extremities and DTR are symmetric. Current Medications Generic Name Dose Route Start Last Admin Trade Name Freq PRN Reason Stop Dose Admin Lactated Ringer's 1,000 mls @ 100 mls/hr 06/09/18 20:45 Lactated Ringers Solution IV ASDIR [facility] Home Medications Medication Instructions Recorded Ondansetron [Zofran Odt -] 4 mg SL TID PRN #6 od.tablet 06/09/18 Abnormal Lab Results 06/09/18 06/09/18 06/09/18 12:27 12:35 12:35 Hgb 9.5 L Hct 30.7 L MCV 76.8 L MCH 23.9 L D MCHC 31.1 L RDW 17.1 H Neutrophils % 84.7 H PT with INR 13.40 H INR 1.13 H Anion Gap Calcium Phosphorus 2.3 L AST TSH Urine Blood 06/09/18 06/09/18 12:35 12:35 Hgb Hct MCV MCH MCHC RDW Neutrophils % PT with INR INR Anion Gap 6 L Calcium 8.3 L Phosphorus AST 10 L TSH 0.15 L Urine Blood 1+ H ASSESSMENT AND PLAN: 1. Gastroenteritis/Viral Syndrome - Findings suggest viral gastroenteritis. CT abdomen/pelvis pending. Pelvic exam done by ER staff was unrevealing and she refused Flu swab. Will continue IV LR, zofran and protonix pending CT scan results. Avoid NSAIDS and use small dose IV morphine (2 mg q 4h prn) for pain control. Get results of thyroid workup from PCP and check PTH level. Give Neutraphos for low phosphate when she is able to tolerate PO feeds. 2. Low MCV Anemia - May be due to menorrhagia. Rule out fibroids, do serial stool guaiacs, reticulocyte count and iron studies. Would benefit from "high quality" oral iron supplementation. 3. DVT prophylaxis - Lovenox 40 mg SQ q 24 hours. 4. Advance directives - Full code
[2018-06-09] MEDS: LACTATED RINGERS SOLUTION 1,000 ML IV SCH (21:44)
[2018-06-09] MEDS ORDERED: MAGNESIUM 1GM/D5W - 1 GM/100 ML IVPB IVPB ONE (21:56)
[2018-06-10 01:46] VITALS: BMI 28.4
[2018-06-10] MEDS: LACTATED RINGERS SOLUTION 1,000 ML IV SCH ×3 (04:45→21:19)
[2018-06-10 08:20] LABS: BASO % 0.5 % (0-2.0); EOS % 2.2 % (0-4.5); HEMATOCRIT 26.7 % (32.4-45.2); HEMOGLOBIN 8.2 GM/dL (10.7-15.3); LYMPH % 20.9 % (8-40); MCH 23.7 pg (25.7-33.7); MCHC 30.8 g/dl (32.0-36.0); MEAN CELL VOLUME 76.9 fl (80-96); MEAN PLT VOLUME 8.5 fl (7.5-11.1); NEUT % 62.4 % (42.8-82.8); PLATELET COUNT 230 K/MM3 (134-434); RBC 3.47 M/mm3 (3.60-5.2); RDW 17.2 % (11.6-15.6); WHITE BLOOD COUNT 4.9 K/mm3 (4.0-10.0)
[2018-06-10 08:34] LABS: ALBUMIN 2.8 g/dl (3.4-5.0); ALK PHOS 64 U/L (45-117); ANION GAP 5 MMOL/L (8-16); BILIRUBIN,TOTAL 0.2 mg/dL (0.2-1); BLOOD UREA NITROGEN 8 mg/dL (7-18); CALCIUM 7.6 mg/dL (8.5-10.1); CHLORIDE 108 mmol/L (98-107); CO2 27 mmol/L (21-32); CREATININE 0.4 mg/dL (0.55-1.3); GLUCOSE,RANDOM 85 mg/dL (74-106); PHOSPHOROUS 3.7 mg/dL (2.5-4.9); POTASSIUM 3.6 mmol/L (3.5-5.1); SGOT/AST 5 U/L (15-37); SGPT/ALT 13 U/L (13-61); SODIUM 140 mmol/L (136-145); TOT PROT 5.7 g/dl (6.4-8.2)
--- NOTE | 2018-06-10 09:32 | PN ---
Progress Note (short form) - Note Progress Note: Subjective: No fever oe chills today , no abd pain , but feels it is intermittent . no recurrence of diarrhea since yesterday. body aches resolved. reprots her 6 month old baby has a cold. has chronic back paina nd sciatica for which she went to OSH few days ago ( worsened symptoms ) has thyroid problem , does not know what . but her primary care doctor is aware and has an appointment with him to discuss thyroid issues. Objective: Vital Signs: Last Vital Signs Temp Pulse Resp BP Pulse Ox 98.4 F 90 18 100/63 97 06/10/18 08:28 06/10/18 08:28 06/10/18 08:28 06/10/18 08:28 06/10/18 08:29 Laboratory Results - last 24 hr 06/09/18 06/09/18 06/09/18 12:27 12:35 12:35 WBC 8.4 RBC 4.00 Hgb 9.5 L Hct 30.7 L MCV 76.8 L MCH 23.9 L D MCHC 31.1 L RDW 17.1 H Plt Count 288 MPV 8.9 D Absolute Neuts (auto) 7.1 Neutrophils % 84.7 H Lymphocytes % 8.0 D Monocytes % 6.5 Eosinophils % 0.4 Basophils % 0.4 D Nucleated RBC % 0 PT with INR 13.40 H INR 1.13 H PTT (Actin FS) 30.7 Sodium Potassium Chloride Carbon Dioxide Anion Gap BUN Creatinine Creat Clearance w eGFR Random Glucose Calcium Phosphorus 2.3 L Magnesium 1.9 Total Bilirubin AST ALT Alkaline Phosphatase Total Protein Albumin Lipase TSH Free T4 1.02 Urine Color Urine Appearance Urine pH Ur Specific [place] Urine Protein Urine Glucose (UA) Urine Ketones Urine Blood Urine Nitrite Urine Bilirubin Urine Urobilinogen Ur Leukocyte Esterase Urine WBC (Auto) Urine RBC (Auto) Ur Epithelial Cells Urine Mucus Urine HCG, Qual 06/09/18 06/09/18 06/10/18 12:35 12:35 07:30 WBC 4.9 RBC 3.47 L Hgb 8.2 L Hct 26.7 L MCV 76.9 L MCH 23.7 L MCHC 30.8 L RDW 17.2 H Plt Count 230 D MPV 8.5 Absolute Neuts (auto) 3.1 Neutrophils % 62.4 D Lymphocytes % 20.9 D Monocytes % 14.0 H D Eosinophils % 2.2 D Basophils % 0.5 Nucleated RBC % 0 PT with INR INR PTT (Actin FS) Sodium 138 Potassium 3.7 Chloride 105 Carbon Dioxide 27 Anion Gap 6 L BUN 11 Creatinine 0.6 Creat Clearance w eGFR > 60 Random Glucose 89 Calcium 8.3 L Phosphorus Magnesium Total Bilirubin 0.3 AST 10 L ALT 16 Alkaline Phosphatase 73 Total Protein 7.1 Albumin 3.4 Lipase 93 TSH 0.15 L Free T4 Urine Color Ltyellow Urine Appearance Clear Urine pH 7.0 Ur Specific [place] 1.015 Urine Protein Negative Urine Glucose (UA) Negative Urine Ketones Negative Urine Blood 1+ H Urine Nitrite Negative Urine Bilirubin Negative Urine Urobilinogen Negative Ur Leukocyte Esterase Negative Urine WBC (Auto) 1 Urine RBC (Auto) 3 Ur Epithelial Cells Rare Urine Mucus Rare Urine HCG, Qual Negative 06/10/18 07:30 WBC RBC Hgb Hct MCV MCH MCHC RDW Plt Count MPV Absolute Neuts (auto) Neutrophils % Lymphocytes % Monocytes % Eosinophils % Basophils % Nucleated RBC % PT with INR INR PTT (Actin FS) Sodium 140 Potassium 3.6 Chloride 108 H Carbon Dioxide 27 Anion Gap 5 L BUN 8 Creatinine 0.4 L Creat Clearance w eGFR > 60 Random Glucose 85 Calcium 7.6 L Phosphorus 3.7 Magnesium 2.0 Total Bilirubin 0.2 AST 5 L ALT 13 Alkaline Phosphatase 64 Total Protein 5.7 L Albumin 2.8 L Lipase TSH Free T4 Urine Color Urine Appearance Urine pH Ur Specific [place] Urine Protein Urine Glucose (UA) Urine Ketones Urine Blood Urine Nitrite Urine Bilirubin Urine Urobilinogen Ur Leukocyte Esterase Urine WBC (Auto) Urine RBC (Auto) Ur Epithelial Cells Urine Mucus Urine HCG, Qual Physical Exam: NAD, MMM CV: RRR, NL S1, S2, 3/S SM at LUSB and LLSB ,. . Lungs: CTAB Ext : no edema Abd : soft, TTP in RUQ, and R periumbilical area . nl BS , no rebound or guarding Imaging: CT reviewed. Assessment/Plan: 32 y/o lady with h/o thyroid problem ,and anemia who presented with N/V , D . 1- N/V/D , likely viral gastroenteritis, her son is sick . sx almost resolved. abd pain is intermittent but better now. body caches resolved. NO LFTS abnormalities. CT with no etiology. pelvic per ER MD with no tenderness. has no discharge or bleeding from Vagina - check US to r/o acute cholecystitis. - if neg , dc IVF , adn dc home - I recommended flu swab, she declined again, and said that she will not take the medicine even if she has the flu. she was advised that having the flu can affect her 6 month old. still refused - chlamydia and Gonorrhea pending . f/u as out tp 2- chronic anemia. likely iron def from heavy menses . - w/u as out pt 3- Heart murmur: f/u with PCP for echo. 4- low TSH. Nl . Free T4. she has appointment with her pcp for this . need reepat when in a regular state . dispo : if US is neg , she can be dc home Visit type - Emergency Visit Emergency Visit: Yes ED Registration Date: 06/09/18 Care time: The patient presented to the Emergency Department on the above date and was hospitalized for further evaluation of their emergent condition. - New Patient This patient is new to me today: Yes Date on this admission: 06/10/18 - Critical Care Critical Care patient: No
--- NOTE | 2018-06-10 09:41 | DS ---
Physical Examination Vital Signs: Vital Signs Temperature 98.4 F 06/10/18 08:28 Pulse Rate 90 06/10/18 08:28 Respiratory Rate 18 06/10/18 08:28 Blood Pressure 100/63 06/10/18 08:28 O2 Sat by Pulse Oximetry (%) 97 06/10/18 08:29 Findings/Remarks: subjectives : No fever or chills today , no abd pain , but feels it is intermittent . no recurrence of diarrhea since yesterday. body aches resolved. reprots her 6 month old baby has a cold. has chronic back paina nd sciatica for which she went to OSH few days ago ( worsened symptoms ) has thyroid problem , does not know what . but her primary care doctor is aware and has an appointment with him to discuss thyroid issues. PE : NAD, MMM CV: RRR, NL S1, S2, 3/S SM at LUSB and LLSB ,. . Lungs: CTAB Ext : no edema Abd : soft, TTP in RUQ, and R periumbilical area . nl BS , no rebound or guarding . Neg Sanchez's Labs: CBC, BMP 06/10/18 07:30 06/10/18 07:30 Discharge Summary Reason For Visit: NAUSEA VOMITING,DIARRHEA, ABDOMINAL PAIN Current Active Problems Abdominal pain (Acute) Nausea vomiting and diarrhea (Acute) Hospital Course: 32 y/o lady with h/o thyroid problem ,and anemia who presented with N/V , D . he sx where though to tbe due to acute viral gastroenteritis , as her son has cold sx at home. CT of abd did not show any acute pathology. LFTS were nL. she was hydrated, ane her sx almost resolved . she had US of her abd : she refused flu swab, and at this point chl;amydia and Gonorrhea is still pending and need to be followed by PCP she has chronic anemia from her heavy period, and she will follow with PCP for w /u . she has a murmur , likely due to anemia. need echo as out pt she has abnormal TFTs, she needs to follow with PCP regarding that , and repeat TFTs in a steady state Dc home Condition: Improved - Instructions Diet, Activity, Other Instructions: You were seen today for nausea/vomiting/diarrhea. likely viral gastroeneteritis. - drink plenty of fluids. - you have some blood work pending , your primary care doctor need to follow with that. ( PTH, chlamaydia, Gonnhorria ) - - please see your primary doctor in 2-3 days . - if you have fever , more nausea or vomiting and recurrence of abdominal pain , please come back to ER. - follow up with your genecologist regarding your heavy periods and anemia - also follow regarding low calcium level - you have a heart murmur, likely due to your anemia, but you need an echo ordered by your primary care doctor . please follow Disposition: HOME
[2018-06-10] MEDS: IBUPROFEN 400 MG TABLET (FP) PO PRN (15:59)
[2018-06-10] MEDS ORDERED: KETOROLAC TROMETHAMINE 15 MG/ML VIAL IVPUSH ONE (20:23)
--- NOTE | 2018-06-11 07:32 | PN ---
Teaching Attending Note Name of Resident: Juve Serna ATTENDING PHYSICIAN STATEMENT I saw and evaluated the patient. I reviewed the resident's note and discussed the case with the resident. I agree with the resident's findings and plan as documented. SUBJECTIVE: Patient is comfortable with no acute distress, no nausea or vomiting. Tolerating diet well. OBJECTIVE: Vital Signs Temperature 98.5 F 06/11/18 06:00 Pulse Rate 82 06/11/18 06:00 Respiratory Rate 18 06/11/18 06:00 Blood Pressure 124/70 06/11/18 06:00 O2 Sat by Pulse Oximetry (%) 96 06/10/18 21:00 GENERAL: Awake, alert, and fully oriented, in no acute distress. HEAD: Normal with no signs of trauma. EYES: Pupils equal, round and reactive to light, extraocular movements intact, sclera anicteric, conjunctiva clear. EARS, NOSE, THROAT: Ears normal, oropharynx clear without exudates. Moist mucous membranes. NECK: Normal range of motion, supple without lymphadenopathy, JVD, or masses. LUNGS: Breath sounds equal, clear to auscultation bilaterally. No wheezes, and no crackles. No accessory muscle use. HEART: Regular rate and rhythm, normal S1 and S2 without murmur, rub or gallop. ABDOMEN: Soft, nontender, not distended, normoactive bowel sounds, no guarding, no rebound, no masses. EXTREMITIES: 2+ pulses, warm, well-perfused. No cyanosis. No clubbing. No peripheral edema. NEUROLOGICAL: Cranial nerves II-XII intact. Normal speech. Normal gait. PSYCHIATRIC: Cooperative. Good eye contact. Appropriate mood and affect. SKIN: Warm, dry, normal turgor, no rashes or lesions noted, normal capillary refill. CBCD WBC 4.9 K/mm3 (4.0-10.0) 06/10/18 07:30 RBC 3.47 M/mm3 (3.60-5.2) L 06/10/18 07:30 Hgb 8.2 GM/dL (10.7-15.3) L 06/10/18 07:30 Hct 26.7 % (32.4-45.2) L 06/10/18 07:30 MCV 76.9 fl (80-96) L 06/10/18 07:30 MCHC 30.8 g/dl (32.0-36.0) L 06/10/18 07:30 RDW 17.2 % (11.6-15.6) H 06/10/18 07:30 Plt Count 230 K/MM3 (134-434) D 06/10/18 07:30 MPV 8.5 fl (7.5-11.1) 06/10/18 07:30 CMP Sodium 140 mmol/L (136-145) 06/10/18 07:30 Potassium 3.6 mmol/L (3.5-5.1) 06/10/18 07:30 Chloride 108 mmol/L (98-107) H 06/10/18 07:30 Carbon Dioxide 27 mmol/L (21-32) 06/10/18 07:30 Anion Gap 5 MMOL/L (8-16) L 06/10/18 07:30 BUN 8 mg/dL (7-18) 06/10/18 07:30 Creatinine 0.4 mg/dL (0.55-1.3) L 06/10/18 07:30 Creat Clearance w eGFR > 60 (>60) 06/10/18 07:30 Random Glucose 85 mg/dL (74-106) 06/10/18 07:30 Calcium 7.6 mg/dL (8.5-10.1) L 06/10/18 07:30 Total Bilirubin 0.2 mg/dL (0.2-1) 06/10/18 07:30 AST 5 U/L (15-37) L 06/10/18 07:30 ALT 13 U/L (13-61) 06/10/18 07:30 Alkaline Phosphatase 64 U/L (45-117) 06/10/18 07:30 Total Protein 5.7 g/dl (6.4-8.2) L 06/10/18 07:30 Albumin 2.8 g/dl (3.4-5.0) L 06/10/18 07:30 Imaging:CT reviewed. Assessment/Plan: 32 y/o lady with h/o thyroid problem ,and anemia who presented with N/V , D . # Acute Nausea ,vomiting, and diarrhea likely viral gastroenteritis, improved. Patient is comfortable and wants to go home. # chronic anemia. likely iron def from heavy menses. w/u as out pt , patient was suggested to follow with her primary and OBGyn for further w/u # Heart murmur: f/u with PCP for echo. # low TSH. Nl . Free T4. she has appointment with her pcp for repeat TSH, FT4 level. US of abdomen within Normal limit. can go home.
[2018-06-11 10:13] VITALS: BP 112/65; PULSE 79; TEMP 98.2
[2018-06-11] MEDS ORDERED: SODIUM CHLORIDE 0.9% 500 ML INFUS.BAG IV ONE ×2 (10:31)
--- NOTE | 2018-06-11 10:42 | DS ---
Physical Exam: SUBJECTIVE: Patient seen and examined. No acute events overnight. Pt. endorses baseline chronic dizziness with anemia. Denies fever, chills, nausea, vomiting, constipation or diarrhea at this time. Denies numbness or tingling. OBJECTIVE: Vital Signs Period Temp Pulse Resp BP Sys/Stephens Pulse Ox Last 24 Hr 98.2 F-100.3 F 70-90 16-20 112-126/65-73 96-97 PHYSICAL EXAM GENERAL: The patient is awake, alert, and fully oriented, in no acute distress. EYES: PERRL, extraocular movements intact, sclera anicteric, conjunctiva clear. ENT: Ears normal, nares patent, oropharynx clear without exudates, moist mucous membranes. LUNGS: Breath sounds equal, clear to auscultation bilaterally, no wheezes, no crackles, no accessory muscle use. HEART: Regular rate and rhythm, S1, S2 without murmur ABDOMEN: Soft, nontender, nondistended, normoactive bowel sounds, no guarding, no rebound EXTREMITIES: 2+ dorsal pedal and radial pulses, warm, no calf tenderness, well- perfused, no edema. NEUROLOGICAL: Normal speech, gait not observed. PSYCH: Normal mood, normal affect. SKIN: Warm, dry, normal turgor LABS Laboratory Results - last 24 hr 06/10/18 16:30 Influenza A (Rapid) Negative Influenza B (Rapid) Negative HOSPITAL COURSE: Date of Admission:06/09/18 Date of Discharge: 06/11/18 Pt. presented with abdominal pain, nausea and vomiting with diarrhea that ceased once in the ED. Abdominal CT did not show any acute pathology. LFTs were wnl. Abdominal US did not show any acute pathology. Pt. likely has viral gastroenteritis. Pt. endorses a sick son at home with "the cold." Pt. was hydrated with fluids and given NSAIDs for pain to good effect. Pt. endorses chronic dizziness and anemia. Pt. advised to follow up with PCP and [employer] as detailed below. Hospital course discussed and agreed upon by Pt. and hospital team. Minutes to complete discharge: 32 Discharge Summary Reason For Visit: NAUSEA VOMITING,DIARRHEA, ABDOMINAL PAIN Current Active Problems Abdominal pain (Acute) Nausea vomiting and diarrhea (Acute) Condition: Improved - Instructions Diet, Activity, Other Instructions: You were seen today for nausea/vomiting/diarrhea, likely viral gastroenteritis( stomach virus). This can be treated with fluids and rest. Please drink plenty of fluids to stay hydrated. Please follow up with your Primary Care Physician in 2-3 days for lab test results(TSH, Thyroid function tests, PTH, Chlamydia and Gonorrhea), about low calcium level and to have an echocardiogram ordered (Dr. Khan heard a murmur) . Please ask your PCP to do Iron studies as you will likely need Iron supplements. Please follow up with your [employer] about your heavy periods and anemia If you have fever, more nausea or vomiting and recurrence of abdominal pain, please come back to ER. Referrals: Arun Torres [Other] Disposition: HOME This patient is new to me today: No Emergency Visit: Yes ED Registration Date: 06/09/18 Care time: The patient presented to the Emergency Department on the above date and was hospitalized for further evaluation of their emergent condition. Critical Care patient: No - Discharge Referral Referred to [facility] No
[2018-06-11] MEDS: IBUPROFEN 400 MG TABLET (FP) PO PRN (11:42)
== END 2018-06-11 15:26 | disposition home or self-care (01) ==
LOC: JER 11:30 → JERBED 18:31 → J6S 22:56
PROVIDERS: ADMIT Internal Medicine; ATTEND Internal Medicine
PROC: 3E0333Z Introduction of Anti-inflammatory into Peripheral Vein, Percutaneous Approach (ICD-10-PCS; principal; 2018-06-09)
PROC: 3E033NZ Introduction of Analgesics, Hypnotics, Sedatives into Peripheral Vein, Percutaneous Approach (ICD-10-PCS; 2018-06-09)
PROC: 3E0337Z Introduction of Electrolytic and Water Balance Substance into Peripheral Vein, Percutaneous Approach (ICD-10-PCS; 2018-06-09)
PROC: 3E033GC Introduction of Other Therapeutic Substance into Peripheral Vein, Percutaneous Approach (ICD-10-PCS; 2018-06-09)
DX: R11.2 Nausea with vomiting, unspecified (principal); R19.7 Diarrhea, unspecified; R10.32 Left lower quadrant pain; R00.0 Tachycardia, unspecified; E03.9 Hypothyroidism, unspecified; D50.9 Iron deficiency anemia, unspecified; R01.1 Cardiac murmur, unspecified; R94.6 Abnormal results of thyroid function studies
CPT/HCPCS: 36415; 71046-TC-FY; 74177-TC; 76705-TC; 80053; 81003; 81015; 83690; 83735; 84100; 84439; 84443; 84703; 85025; 85610; 85730; 87081; 87086; 87110; 87491; 87591; 87804; 99284-25; G0378; J0131; J7030